=== PATIENT | female | born 1990 | race Caucasian/White ===

== ENCOUNTER 2016-09-28 16:20 | Emergency (ER) | payer BC, OTHER ==
--- NOTE | 2016-09-28 16:50 | ERRECORD ---
[facility] EMERGENCY RECORD HPI SORE THROAT (16:38 [facility]) CHIEF COMPLAINT: Patient presents for evaluation of sore throat. HISTORIAN: History provided by patient, 26F at 36 weeks by dates presents complaining of two days of sore throat, nasal congestion and ear ache. Denies chest pain, abdominal pain, vaginal discharge or bleeding, headache. Denies cough. LOCATION: Symptoms are localized, most severe in the right side of throat. QUALITY: Pain is sharp in nature. TIME COURSE: Gradual onset of symptoms, Symptoms are worsening. EXACERBATED BY: Patient's condition exacerbated by food. RELIEVED BY: Patient's condition relieved by nothing because patient has not tried anything for relief. ROS (16:40 [facility]) CONSTITUTIONAL: Negative constitutional review of systems, Historian denies chills, denies fever. EYES: Negative eye review of systems, Historian denies eye pain, denies vision changes. ENT: Historian reports otalgia, reports rhinorrhea, reports sinus pain, reports sore throat. CARDIOVASCULAR: Negative cardiovascular review of systems, Historian denies chest pain, denies palpitations. RESPIRATORY: Negative respiratory review of systems, Historian denies cough, denies shortness of breath. GI: Negative gastrointestinal review of systems, Historian denies abdominal pain, denies constipation, denies diarrhea, denies nausea, denies vomiting. GENITOURINARY FEMALE: Negative genitourinary review of systems, Historian denies dysuria, denies frequency. MUSCULOSKELETAL: Negative musculoskeletal review of systems, Historian denies back pain, denies fall, denies injury. SKIN: Negative skin review of systems, Historian denies rash, denies skin changes. NEUROLOGIC: Negative neurologic review of systems, Historian denies headache, denies mental status changes, denies paralysis, denies paresthesias, denies sensory changes. HEMO/LYMPHATIC: Normal hematologic/lymphatic system review, Historian denies abnormal blood clotting. ALLERGIC/IMMUNOLOGIC: Normal allergy/immunologic system review, Historian denies frequent infections. PAST MEDICAL HISTORY (16:37 [facility]) MEDICAL HISTORY: No past medical history, Flu vaccine up to date. FEMALE SURGICAL HISTORY: Patient has no surgical history. PSYCHIATRIC HISTORY: No previous psychiatric history. SOCIAL HISTORY: Patient denies alcohol use, Patient denies drug use, Patient has no smoking history. &a-1R&a+25V*p+0X*a1709I*c202B*c15G*c2P*p-0X&a-25V&a+1R Name: Staci Willard : 1990 F26 MedRec: [id number] AcctNum: [id number] Prepared: WedSep 28, 2016 16:52 by Interface Page 1 of 3 pMD [facility] EMERGENCY RECORD KNOWN ALLERGIES No Known Allergies CURRENT MEDICATIONS (16:33 [facility]) : TABLET : Strength - 1 mg : ORAL Patient Dose: Unknown. VITAL SIGNS (16:30 [facility]) VITAL SIGNS: BP: 132/77, Pulse: 95, Resp: 16, Temp: 97.6 (Oral), Pain: 6, O2 sat: 99 on Room Air, Time: 09/28/2016 16:30. PHYSICAL EXAM (16:40 [facility]) CONSTITUTIONAL: Vital signs reviewed, Patient afebrile, Pulse normal, Blood pressure normal, Respiratory rate normal, Patient appears non toxic, Patient appears pain free, Patient alert and oriented to person, place and time. HEAD: Head exam normal, Head exam included findings of head atraumatic, normocephalic. EYES: Eye exam normal, Eye exam included findings of eyelids normal to inspection, Pupils equally round and reactive to light, Extraocular muscles intact, no nystagmus. ENT: ENT exam normal, Ear exam normal, external ear normal, tympanic membranes normal, no bleeding, Pharynx exam normal, Uvula exam normal, Tonsil exam normal, Mouth exam normal, mucous membranes moist, teeth normal. NECK: Neck exam normal, Neck exam included findings of normal range of motion, Trachea midline, no meningeal signs, no cervical adenopathy, no tenderness. RESPIRATORY CHEST: Respiratory and chest exam normal, Respiratory exam included findings of no respiratory distress, Breath sounds clear. CARDIOVASCULAR: Cardiovascular assessment normal, Cardiovascular exam included findings of heart rate regular rate and rhythm, Heart sounds normal. ABDOMEN FEMALE: Abdominal exam included findings of abdomen nontender, Bowel sounds normal, no distension, no mass, no pulsatile masses, no peritoneal signs, no rigidity, no guarding, no rebound, Rovsing's sign absent. BACK: Back exam normal, Back exam included findings of normal inspection, range of motion normal, no tenderness. UPPER EXTREMITY: Upper extremity exam normal, Upper extremity exam included findings of inspection normal, Range of motion normal, Motor strength normal, Sensation intact, Radial pulse normal. LOWER EXTREMITY: Lower extremity exam normal, Lower extremity exam included findings of inspection normal, Range of motion normal, Motor strength normal, Sensation intact, Posterior tibial pulse normal, Pedal pulse normal. NEURO: Neuro exam normal, Neuro exam findings include patient &a-1R&a+25V*p+0X*z7101O*c202B*c15G*c2P*p-0X&a-25V&a+1R Name: Staci Willard : 1990 F26 MedRec: [id number] AcctNum: [id number] Prepared: WedSep 28, 2016 16:52 by Interface Page 2 of 3 pMD [facility] EMERGENCY RECORD oriented to person, place and time, Speech normal, Gait normal, Cranial nerves intact, no focal motor deficits, no focal sensory deficits. SKIN: Skin exam normal, Skin exam included findings of skin warm, dry, and normal in color, no rash. PSYCHIATRIC: Psychiatric exam normal, Normal affect. DOCTOR NOTES (16:42 [facility]) TEXT: Patient presented with signs and symptoms consistent with viral syndrome. well appearing, non-toxic patient without evidence of concerning bacterial illness such as meningitis or pneumonia that would require further workup or investigation. Tolerating oral intake without difficulty. Appropriate for outpatient management with oral fluids and antipyretics. Needs follow up with primary physician in the next 2-3 days for re-evaluation. PATIENT STATUS: Patient has improved since arrival to emergency department. PATIENT PLAN: The patient will be discharged, The patient will follow up with primary care physician. PROBLEM LIST No recorded problems DIAGNOSIS (16:37 [facility]) FINAL: PRIMARY: Viral infection. PRESCRIPTION (16:37 [facility]) Unisom (doxylamine): TABLET : 25 mg : ORAL : Quantity: 25 Unit: mg Route: ORAL Schedule: once a day (at bedtime) Dispense: 10 May substitute. Refills: No Refills . NOTES: No refills. DISPOSITION PATIENT: Disposition Type: Discharge, Disposition: *Discharge Home. (16:37 [facility]) Patient left the department. (16:47 [facility]) Morales: JJAC=MD Loretta, Vladimir OLVERAMI=GA Tao, Sahyla &a-1R&a+25V*p+0X*[id number]*c202B*c15G*c2P*p-0X&a-25V&a+1R Name: Staci Willard Alban : 1990 F26 MedRec: [id number] AcctNum: [id number] Prepared: [facility] Sep 28, 2016 16:52 by Interface Page 3 of 3 pMD MTDD
--- NOTE | 2016-09-28 17:02 | PICIS ---
[facility] EMERGENCY RECORD TRIAGE (16:31 [facility]) PATIENT: NAME: Staci Willard, AGE: 26, GENDER: female, : Wed1990, TIME OF GREET: WedSep 28, 2016 16:21, PREFERRED LANGUAGE: Uzbek, ETHNICITY: Not or , ECODE BILLING MAP: [facility], Zip Code: [address], KG WEIGHT: 90.72, PHONE: , , , PERSON ID: [id number], PCP: MD Iglesias Justin. (16:31 [facility]) PAYMENT: [place] [employer]. (16:32) COMPLAINT: Throat Pain. (16:31 [facility]) ADMISSION: URGENCY: 5 Fast Track, ADMISSION SOURCE: Home, TRANSPORT: CAR, BED: ER -03. (16:31 [facility]) ASSESSMENT: Assessment: PT PRESENTS AWAKE ALERT AND ORIENTED. SKIN PINK WARM AND DRY. (16:37 [facility]) IMMUNIZATIONS: Flu vaccine up to date. (16:37 [facility]) SIRS SCORING: Heart Rate 55-109 (0), Temp range 96.8-101.1 (0), respiratory rate 12-24 (0), Mental Status altered: no (0), Infection or Suspected Infection: No. (16:37 [facility]) PROVIDERS: TRIAGE NURSE: Shayla Tao RN. (16:31 [facility]) VITAL SIGNS: BP 132/77, Pulse 95, Resp 16, Temp 97.6, (Oral), Pain 6, O2 Sat 99, on Room Air, Time 09/28/2016 16:30. (16:30 [facility]) KNOWN ALLERGIES No Known Allergies CURRENT MEDICATIONS (16:33 [facility]) : TABLET : Strength - 1 mg : ORAL Patient Dose: Unknown. VITAL SIGNS (16:30 [facility]) VITAL SIGNS: BP: 132/77, Pulse: 95, Resp: 16, Temp: 97.6 (Oral), Pain: 6, O2 sat: 99 on Room Air, Time: 09/28/2016 16:30. NURSING ASSESSMENT: FOCUSED (16:43 [facility]) CONSTITUTIONAL: Complex assessment performed, Patient arrives ambulatory, Gait steady, History obtained from patient, Patient appears comfortable, Patient cooperative, Patient alert, Oriented to person, place and time, Skin warm, Skin dry, Skin normal in color, Mucous membranes pink, Mucous membranes moist, Patient is well-groomed, Patient complains of sore throat. PAIN: on a scale 0-10 patient rates pain as 6. NEURO: Focused neuro assessment findings include patient alert, Speech coherent. RESPIRATORY: Focused respiratory assessment findings include breath sounds clear. ABDOMEN: Notes: Gravid. GENITOURINARY FEMALE: Focused genitourinary assessment not applicable. &a-1R&a+25V*p+0X*r6069C*c202B*c15G*c2P*p-0X&a-25V&a+1R Name: Staci Willard : 1990 F26 MedRec: [id number] AcctNum: [id number] Prepared: WedSep 28, 2016 16:52 by Interface Page 1 of 5 pMD [facility] EMERGENCY RECORD NURSING PROCEDURE: DISCHARGE NOTE (16:39 [facility]) DISCHARGE: Patient discharged to home, ambulating without assistance, driving self, unaccompanied, Summary of Care printed/ provided, Patient requested and was provided an electronic copy of Discharge Instructions, Transition record given to patient, Discharge instructions given to patient, Simple or moderate discharge teaching performed, Prescriptions given and instructions on side effects given, Medication reconciliation form given, Above person(s) verbalized understanding of discharge instructions and follow-up care, Patient treated and evaluated by physician. HPI SORE THROAT (16:38 [facility]) CHIEF COMPLAINT: Patient presents for evaluation of sore throat. HISTORIAN: History provided by patient, 26F at 36 weeks by dates presents complaining of two days of sore throat, nasal congestion and ear ache. Denies chest pain, abdominal pain, vaginal discharge or bleeding, headache. Denies cough. LOCATION: Symptoms are localized, most severe in the right side of throat. QUALITY: Pain is sharp in nature. TIME COURSE: Gradual onset of symptoms, Symptoms are worsening. EXACERBATED BY: Patient's condition exacerbated by food. RELIEVED BY: Patient's condition relieved by nothing because patient has not tried anything for relief. ROS (16:40 [facility]) CONSTITUTIONAL: Negative constitutional review of systems, Historian denies chills, denies fever. EYES: Negative eye review of systems, Historian denies eye pain, denies vision changes. ENT: Historian reports otalgia, reports rhinorrhea, reports sinus pain, reports sore throat. CARDIOVASCULAR: Negative cardiovascular review of systems, Historian denies chest pain, denies palpitations. RESPIRATORY: Negative respiratory review of systems, Historian denies cough, denies shortness of breath. GI: Negative gastrointestinal review of systems, Historian denies abdominal pain, denies constipation, denies diarrhea, denies nausea, denies vomiting. GENITOURINARY FEMALE: Negative genitourinary review of systems, Historian denies dysuria, denies frequency. MUSCULOSKELETAL: Negative musculoskeletal review of systems, Historian denies back pain, denies fall, denies injury. SKIN: Negative skin review of systems, Historian denies rash, denies skin changes. NEUROLOGIC: Negative neurologic review of systems, Historian denies headache, denies mental status changes, denies paralysis, denies paresthesias, denies sensory changes. &a-1R&a+25V*p+0X*o5053T*c202B*c15G*c2P*p-0X&a-25V&a+1R Name: Staci Willard : 1990 F26 MedRec: [id number] AcctNum: [id number] Prepared: WedSep 28, 2016 16:52 by Interface Page 2 of 5 D [facility] EMERGENCY RECORD HEMO/LYMPHATIC: Normal hematologic/lymphatic system review, Historian denies abnormal blood clotting. ALLERGIC/IMMUNOLOGIC: Normal allergy/immunologic system review, Historian denies frequent infections. PAST MEDICAL HISTORY (16:37 [facility]) MEDICAL HISTORY: No past medical history, Flu vaccine up to date. FEMALE SURGICAL HISTORY: Patient has no surgical history. PSYCHIATRIC HISTORY: No previous psychiatric history. SOCIAL HISTORY: Patient denies alcohol use, Patient denies drug use, Patient has no smoking history. PHYSICAL EXAM (16:40 [facility]) CONSTITUTIONAL: Vital signs reviewed, Patient afebrile, Pulse normal, Blood pressure normal, Respiratory rate normal, Patient appears non toxic, Patient appears pain free, Patient alert and oriented to person, place and time. HEAD: Head exam normal, Head exam included findings of head atraumatic, normocephalic. EYES: Eye exam normal, Eye exam included findings of eyelids normal to inspection, Pupils equally round and reactive to light, Extraocular muscles intact, no nystagmus. ENT: ENT exam normal, Ear exam normal, external ear normal, tympanic membranes normal, no bleeding, Pharynx exam normal, Uvula exam normal, Tonsil exam normal, Mouth exam normal, mucous membranes moist, teeth normal. NECK: Neck exam normal, Neck exam included findings of normal range of motion, Trachea midline, no meningeal signs, no cervical adenopathy, no tenderness. RESPIRATORY CHEST: Respiratory and chest exam normal, Respiratory exam included findings of no respiratory distress, Breath sounds clear. CARDIOVASCULAR: Cardiovascular assessment normal, Cardiovascular exam included findings of heart rate regular rate and rhythm, Heart sounds normal. ABDOMEN FEMALE: Abdominal exam included findings of abdomen nontender, Bowel sounds normal, no distension, no mass, no pulsatile masses, no peritoneal signs, no rigidity, no guarding, no rebound, Rovsing's sign absent. BACK: Back exam normal, Back exam included findings of normal inspection, range of motion normal, no tenderness. UPPER EXTREMITY: Upper extremity exam normal, Upper extremity exam included findings of inspection normal, Range of motion normal, Motor strength normal, Sensation intact, Radial pulse normal. LOWER EXTREMITY: Lower extremity exam normal, Lower extremity exam included findings of inspection normal, Range of motion normal, Motor strength normal, Sensation intact, Posterior tibial pulse normal, Pedal pulse normal. NEURO: Neuro exam normal, Neuro exam findings include patient oriented to person, place and time, Speech normal, Gait normal, &a-1R&a+25V*p+0X*[id number]*c202B*c15G*c2P*p-0X&a-25V&a+1R Name: Staci Willard : 1990 F26 MedRec: [id number] AcctNum: [id number] Prepared: WedSep 28, 2016 16:52 by Interface Page 3 of 5 pMD [facility] EMERGENCY RECORD Cranial nerves intact, no focal motor deficits, no focal sensory deficits. SKIN: Skin exam normal, Skin exam included findings of skin warm, dry, and normal in color, no rash. PSYCHIATRIC: Psychiatric exam normal, Normal affect. EVENTS TRANSFER: Triage to Emergency Emergency Room -03. (WedSep 28, 2016 16:31 [facility]) Removed from Emergency Emergency Room -03. (16:47 [facility]) DOCTOR NOTES (16:42 [facility]) TEXT: Patient presented with signs and symptoms consistent with viral syndrome. well appearing, non-toxic patient without evidence of concerning bacterial illness such as meningitis or pneumonia that would require further workup or investigation. Tolerating oral intake without difficulty. Appropriate for outpatient management with oral fluids and antipyretics. Needs follow up with primary physician in the next 2-3 days for re-evaluation. PATIENT STATUS: Patient has improved since arrival to emergency department. PATIENT PLAN: The patient will be discharged, The patient will follow up with primary care physician. PROBLEM LIST No recorded problems DIAGNOSIS (16:37 [facility]) FINAL: PRIMARY: Viral infection. DISPOSITION PATIENT: Disposition Type: Discharge, Disposition: *Discharge Home. (16:37 [facility]) Patient left the department. (16:47 [facility]) INSTRUCTION (16:38 [facility]) DISCHARGE: URI NO ANTIBIOTIC TREATMENT ADULT. FOLLOWUP: MD Iglesias Justin, Obstetrics and Gynecology, [address] [place] [address], [address], [facility] [address], . SPECIAL: Follow up with your regular doctor. If your symptoms get worse, return to the ED. Make sure you're drinking enough fluids. PRESCRIPTION (16:37 [facility]) Unisom (doxylamine): TABLET : 25 mg : ORAL : Quantity: 25 Unit: mg Route: ORAL Schedule: once a day (at bedtime) Dispense: 10 May substitute. Refills: No Refills . NOTES: No refills. IMAGING (16:47 [facility]) &a-1R&a+25V*p+0X*b7476E*c202B*c15G*c2P*p-0X&a-25V&a+1R Name: Staci Willard : 1990 F26 MedRec: [id number] AcctNum: [id number] Prepared: WedSep 28, 2016 16:52 by Interface Page 4 of 5 pMD [facility] EMERGENCY RECORD *SUPPLY CHARGE SHEET: Image captured from scanner. *DISCHARGE INSTRUCTIONS RECEIPT: Image captured from scanner. ADMIN (16:42 [facility]) DIGITAL SIGNATURE: MD Burgos Jason. Morales: RANCHO=MD Burgos Jason JSMI=GA Tao, Shayla &a-1R&a+25V*p+0X*t4460W*c202B*c15G*c2P*p-0X&a-25V&a+1R Name: Staci Willard : 1990 F26 MedRec: [id number] AcctNum: [id number] Prepared: [facility] Sep 28, 2016 16:52 by Interface Page 5 of 5 pMD MTDD
== END 2016-09-28 16:39 | disposition home or self-care (01) ==
LOC: BURERS 16:20
DX: O98.513 Other viral diseases complicating pregnancy, third trimester (principal); B34.9 Viral infection, unspecified; Z3A.36 36 weeks gestation of pregnancy
CPT/HCPCS: 99282

== ENCOUNTER 2018-08-20 10:56 | Emergency (ER) | payer BC, OTHER, SELFPAY ==
[2018-08-20] MEDS ORDERED: Triamcinolone 40 MG/ML VIAL ONE (11:17)
== END 2018-08-20 11:47 | disposition home or self-care (01) ==
LOC: BURERS 10:56
DX: S90.562A Insect bite (nonvenomous), left ankle, initial encounter (principal); S90.561A Insect bite (nonvenomous), right ankle, initial encounter; S30.861A Insect bite (nonvenomous) of abdominal wall, initial encounter; S00.86XA Insect bite (nonvenomous) of other part of head, initial encounter; F17.200 Nicotine dependence, unspecified, uncomplicated; W57.XXXA Bitten or stung by nonvenomous insect and other nonvenomous arthropods, initial encounter
CPT/HCPCS: 96372; J3301